=== PATIENT | female | born 1980 | race Caucasian/White ===

== ENCOUNTER 2019-11-29 22:46 | Emergency (ER) | payer BC ==
[~2019-11-29] VITALS: Ht 170.2 cm; Wt 63.6 kg
[2019-11-29 22:54] VITALS: Ht 170.2 cm; Wt 63.6 kg
[2019-11-29] MEDS ORDERED: ACETAMINOPHEN500 M1 PO (23:23)
[2019-11-29] MEDS ORDERED: IBUPROFEN800 MG PO (23:23)
[2019-11-29] MEDS ORDERED: CYCLOBENZAPRINE10 MG PO (23:23)
[2019-11-29 23:30] VITALS: BP 145/95
== END 2019-11-29 23:30 | disposition home or self-care (01) ==
LOC: D.ER 22:46
DX: S50.812A Abrasion of left forearm, initial encounter (principal); T71.9XXA Asphyxiation due to unspecified cause, initial encounter; Y93.9 Activity, unspecified; S40.212A Abrasion of left shoulder, initial encounter; S40.812A Abrasion of left upper arm, initial encounter; S40.811A Abrasion of right upper arm, initial encounter; S00.81XA Abrasion of other part of head, initial encounter; S50.12XA Contusion of left forearm, initial encounter; S40.012A Contusion of left shoulder, initial encounter; S40.022A Contusion of left upper arm, initial encounter; S10.93XA Contusion of unspecified part of neck, initial encounter; S40.021A Contusion of right upper arm, initial encounter; S40.011A Contusion of right shoulder, initial encounter; S00.83XA Contusion of other part of head, initial encounter; M79.18 Myalgia, other site; T14.8XXA Other injury of unspecified body region, initial encounter